=== PATIENT | male | born 1985 | race African-American/Black ===

== ENCOUNTER 2018-11-15 19:09 | Emergency (ER) | payer SELFPAY ==
[~2018-11-15] VITALS: Ht 177.8 cm; Wt 117.9 kg
[2018-11-15] MEDS ORDERED: DEXAMETHASONE SOD PHOS 10 MG/1 ML VIAL INJ ONE (19:30)
[2018-11-15] MEDS ORDERED: CLONIDINE HCL 0.2 MG TAB PO ONE (19:45)
[2018-11-15] MEDS ORDERED: OXYMETAZOLINE HCL 0.05% NAS 1 SPRAY BTL ONE ×2 (20:00)
--- NOTE | 2018-11-15 20:01 | Diagnostic Imaging Report ---
EXAMINATION: PA and lateral views of the chest. COMPARISON: None CLINICAL HISTORY: Cough and congestion, chest pain DISCUSSION: Lines/tubes: None. Lungs: The lungs are well inflated and clear. There is no evidence of pneumonia or pulmonary edema. Pleura: There is no pleural effusion or pneumothorax. Heart and mediastinum: Cardiomediastinal silhouette is borderline in size. Prominence of bilateral pulmonary arteries, without central congestion. Bones and soft tissues: No acute bony abnormalities. Degenerative changes in the thoracic spine IMPRESSION: No acute cardiopulmonary abnormalities. Prominence of bilateral pulmonary arteries, which may reflect pulmonary hypertension. Signed by: Dr. Jonathan Espino M.D. on 11/15/2018 7:58 PM
[2018-11-15 21:13] VITALS: BP 146/87
== END 2018-11-15 21:14 | disposition home or self-care (01) ==
LOC: ER 19:09 → EDSEX 19:09 → ER 21:14
DX: R05 Cough (principal); J01.10 Acute frontal sinusitis, unspecified
CPT/HCPCS: 71046; 99283; J1100

== ENCOUNTER 2018-12-21 21:17 | Emergency (ER) | payer SELFPAY ==
[~2018-12-21] VITALS: Ht 177.8 cm; Wt 117.9 kg
--- OUTSIDE RECORDS SUMMARY | 2018-12-21 21:20 | XMS REPORT ---
Author Author [facility] Address Unknown Phone Unavailable Care Team Providers [employer] Name Role Phone Ant TOVAR Unavailable Unavailable Problems This patient has no known problems. Allergies, Adverse Reactions, Alerts This patient has no known allergies or adverse reactions. Medications This patient has no known medications. Encounters Start Date/Time End Date/Time Encounter Type Admission Type Attending [facility] Care Facility Care Department Encounter ID 2018-04-22 00:00:00 2018-04-23 00:00:00 Outpatient [facility] [id number] Results Test Description Test Time Test Comments Text Results Atomic Results Result Comments CHEST 2 VIEWS 2018-11-15 19:57:00 [place] [address] Patient Name: CITLALLI RODRIGUEZ MR #: [id number] : 1985 Age/Sex: 33/M Req #: [id number] Adm Physician: Ordered by: ELDON BELLA [employer] Report #: [id number] Location: ER Room/Bed: Procedure: [id number] DX/CHEST 2 VIEWS Exam Date: 11/15/18 Exam Time: 1919 REPORT STATUS: Signed EXAMINATION: PA and lateral views of the chest. COMPARISON: None CLINICAL HISTORY: Cough and congestion, chest pain DISCUSSION: Lines/tubes: None. Lungs: The lungs are well inflated and clear. There is no evidence of pneumonia or pulmonary edema. Pleura: There is no pleural effusion or pneumothorax. Heart and mediastinum: Cardiomediastinal silhouette is borderline in size. Prominence of bilateral pulmonary arteries, without central congestion. Bones and soft tissues: No acute bony abnormalities. Degenerative changes in the thoracic spine IMPRESSION: No acute cardiopulmonary abnormalities. Prominence of bilateral pulmonary arteries, which may reflect pulmonary hypertension. Signed by: Dr. Chelsea Espino M.D. on 11/15/2018 7:58 PM Dictated By: CHELSEA ESPION MD 57 Transcribed By: JERRELL on 11/15/181957 COPY TO: ELDON BELLA NP
== END 2018-12-21 22:49 | disposition home or self-care (01) ==
LOC: ER 21:17
DX: R50.9 Fever, unspecified (principal); R05 Cough; J02.0 Streptococcal pharyngitis; G44.83 Primary cough headache
CPT/HCPCS: 99283